=== PATIENT | female | born 1985 | race Caucasian/White ===

== ENCOUNTER 2018-05-05 15:36 | Observation (INO) | payer MEDICAID ==
[~2018-05-05] VITALS: Ht 160 cm; Wt 68.0 kg
--- NOTE | 2018-05-05 17:01 | PD ---
HPI Chief Complaint ctx Date Seen: May 05, 2018 Time Seen: 16:49 Travel History International Travel<30 Days: No Contact w/Intl Traveler<30Days: No Known Affected Area: No History of Present Illness HPI Pt is a 32y/o @ 30.6wks. She has PNC with Dr. Hui. She presents today for ctx. She states that she has been donna for 2wks but that today they became stronger and closer together. She reports that she is adequately hydrated. Denies LOF or VB. +FM. Weeks Gestation: 30 Para: 2 : 3 History Past Medical History Medical History: Denies Significant Hx Past Surgical History Narrative Surgical wisdom teeth extraction Family History Family History: Negative Social History Alcohol Use: No Tobacco Use: No Substance Abuse: No Allergies-Medications (Allergen,Severity, Reaction): Coded Allergies: No Known Allergies (Unverified , 05/05/18) Comments none Narrative Medication PNVs Review of Systems Except as stated in HPI: all other systems reviewed are Neg Physical Exam Narrative General: well developed, well nourished, no acute distress HEENT: normocephalic atraumatic, extraocular movements intact, neck supple Abdomen: soft, gravid, non-tender, nondistended Uterus: fundus soft, non-tender Extremities: full range of motion Skin: normal coloration, no rashes, no suspicious skin lesions noted Neurologic: cranial nerves 2-12 grossly intact, normal muscle tone, normal gait Psychiatric: normal mood and affect, appropriate FHTs: 140s, +accels, variable decels (mild), moderate variability, reactive [place]: irregular ctx Cvx: FFN collected first then /3, mid position Data Data Vital Signs Reviewed: Yes Orders Orders Fibronectin (05/05/18 16:24) Vital Signs (Adult) .ON ADMISSION (05/05/18 16:41) ^ Labor Status (05/05/18 16:41) Urinalysis - C+S If Indicated (05/05/18 16:41) ^ Non Stress Test (05/05/18 16:41) Labs Laboratory Tests Test 05/05/18 16:11 MDM Plan 32y/o @ 30.6wks with ctx. -- irregular on monitor -- FHTs cat 1 -- cvx /3 -- FFN negative Dispo: recheck 1hr later 2cm /3; pt with continued painful ctx; will admit to obs and give BMZ x2, indocin for tocolysis, magnesium for neuroprotection; Dr. Wilson (dog control officer) notified of pt status and plan of care. He will assume care of the pt. Courtesy orders placed. Diagnosis Diagnosis: Primary Impression: 30 weeks gestation of Additional Impression: Uterine contractions during Moy Guzmán MD May 05, 2018 17:01
[2018-05-05] MEDS ORDERED: MAGNESIUM SULFATE 40 GM PREMIX 1,000 ML ONE (17:44)
[2018-05-05] MEDS ORDERED: MAGNESIUM SULFATE 4 GM PREMIX 100 ML ONE (17:45)
[2018-05-05 17:57] LABS: BILIRUBIN, URINE NEG (NEG); BLOOD, URINE NEG (NEG); GLUCOSE,URINE NEG (NEG); KETONE, URINE NEG (NEG); NITRITE,URINE NEG (NEG); PH, URINE 6.5 (5.0-8.5); SQUAMOUS EPITHELIAL CELL URINE 2 /hpf (0-5); URINE COLOR COLORLESS (YELLW/STRAW); URINE LEUKOCYTE ESTERASE NEG (NEG)
[2018-05-05] MEDS ORDERED: MAGNESIUM SULFATE 40 GM PREMIX 1,000 ML IV SCH (18:02)
[2018-05-05] MEDS ORDERED: MAGNESIUM SULFATE 4 GM PREMIX 100 ML IV ONE (18:15)
[2018-05-05] MEDS ORDERED: ONDANSETRON ODT 4 MG TAB PO PRN (18:15)
[2018-05-05] MEDS ORDERED: SODIUM CHLORIDE 0.9% FLUSH 10 ML FLUSH IV FLUSH PRN (18:15)
[2018-05-05] MEDS ORDERED: INDOMETHACIN 50 MG CAP PO ONE (18:15)
[2018-05-05] MEDS ORDERED: CALCIUM GLUCONATE 10% 1 GM/10 ML VIAL IV PUSH PRN (18:15)
[2018-05-05 18:26] LABS: AUTOMATED NEUTROPHIL # 6.7 TH/MM3 (1.8-7.7); BASOPHIL % 0.5 % (0.0-2.0); EOSINOPHIL % 0.5 % (0.0-4.0); HEMATOCRIT 34.7 % (35.0-46.0); HEMOGLOBIN 11.8 GM/DL (11.6-15.3); LYMPHOCYTE # 1.8 TH/MM3 (1.0-4.8); MEAN CORPUSCULAR HEMOGLOBIN 31.1 PG (27.0-34.0); MEAN CORPUSCULAR HGB CONC 34.1 % (32.0-36.0); MONOCYTE # 0.7 TH/MM3 (0-0.9); PLATELET COUNT 211 TH/MM3 (150-450); RED BLOOD COUNT 3.81 MIL/MM3 (4.00-5.30); RED CELL DISTRIBUTION WIDTH 14.8 % (11.6-17.2); WHITE BLOOD COUNT 9.3 TH/MM3 (4.0-11.0)
[2018-05-05] MEDS: LACTATED RINGER'S 1000 ML INJ 1,000 ML IV SCH ×2 (18:30→22:12)
[2018-05-05] MEDS: BETAMETHASONE SOD PHOS/ACETATE SUSP 30 MG/5 ML VIAL IM SCH (18:30)
--- NOTE | 2018-05-05 19:48 | HHI.PR ---
DENTOFACIAL ORTHOPEDICS DENTIST Note Note S: Patient complaining of contractions, no vaginal bleeding, did report some leakage of fluid but unsure when or how much. Denies nausea or vomiting. O: Abdomen: Soft, gravid, nontender, no fundal tenderness. : Deferred, per nursing one 2 cm, thick, high. A/P: 32-year-old G3 repeat 2002 at 30 weeks and 6 days by her stated MELLO of 07/07/2018 seen as a triage by OB hospitalist and dispositioned for observation and tocolysis and betamethasone prior to my knowledge or assessment which I am in agreement with 1. IUP: Category 1 tracing -Cephalic by by bedside ultrasound, anterior placenta -GBS collected and pending 2. contractions / questionable labor: Patient's cervix changed from 1/T/H -> 2/T/H in 1-2 hours per nursing on arrival, FFN negative, however given Regular painful contractions will place in close observation. - Plan: Magnesium for neuro protection x 12hrs, Indocin for tocolysis x48hrs, betamethasone for lung maturity. Nursing to reassess patient in 4 hours and if contractions resolve and no more cervical change we will allow regular diet. Will observe until at least tomorrow afternoon after second betamethasone potentially for 48 hrs. If continues to make cervical change will have EFW done. 3. Leakage of fluid: Likely physiologic discharge as Amnisure negative and grossly normal-appearing fluid on bedside ultrasound. Kashif Wilson MD May 05, 2018 19:48
[2018-05-05] MEDS: SODIUM CHLORIDE 0.9% FLUSH 10 ML FLUSH IV FLUSH SCH (21:00)
[2018-05-05] MEDS ORDERED: ACETAMINOPHEN 325 MG TAB PO PRN (22:00)
[2018-05-05 23:30] VITALS: RESP 16
[2018-05-06] MEDS: INDOMETHACIN 25 MG CAP PO SCH ×2 (00:25→06:37)
--- NOTE | 2018-05-06 08:18 | PD.OB.ANTE ---
Subjective Interval History 32 yo at 31 weeks with increasing contractions for two weeks that warranted intervention last night. Cervix reported to change and magnesium, steroids and indocin initiated. Slept four hours with no UCs. No leaking, bleeding. GFM PNC uneventful til this. Objective Vital Signs Vital Signs Date Time Temp Pulse Resp B/P (MAP) Pulse Ox O2 Delivery O2 Flow Rate FiO2 05/05/18 23:30 16 Lab & Micro Results Test 05/05/18 16:11 05/05/18 16:40 05/05/18 17:50 Fibronectin NEGATIVE Urine Color COLORLESS Urine Turbidity CLEAR Urine pH 6.5 Urine Specific [place] 1.002 Urine Protein NEG mg/dL Urine Glucose (UA) NEG mg/dL Urine Ketones NEG mg/dL Urine Occult Blood NEG Urine Nitrite NEG Urine Bilirubin NEG Urine Urobilinogen LESS THAN 2.0 MG/DL Urine Leukocyte Esterase NEG Urine RBC LESS THAN 1 /hpf Urine WBC LESS THAN 1 /hpf Urine Squamous Epithelial Cells 2 /hpf Microscopic Urinalysis Comment CULT NOT INDICATED White Blood Count 9.3 TH/MM3 Red Blood Count 3.81 MIL/MM3 Hemoglobin 11.8 GM/DL Hematocrit 34.7 % Mean Corpuscular Volume 91.0 FL Mean Corpuscular Hemoglobin 31.1 PG Mean Corpuscular Hemoglobin Concent 34.1 % Red Cell Distribution Width 14.8 % Platelet Count 211 TH/MM3 Mean Platelet Volume 7.0 FL Neutrophils (%) (Auto) 72.0 % Lymphocytes (%) (Auto) 19.0 % Monocytes (%) (Auto) 8.0 % Eosinophils (%) (Auto) 0.5 % Basophils (%) (Auto) 0.5 % Neutrophils # (Auto) 6.7 TH/MM3 Lymphocytes # (Auto) 1.8 TH/MM3 Monocytes # (Auto) 0.7 TH/MM3 Eosinophils # (Auto) 0.0 TH/MM3 Basophils # (Auto) 0.0 TH/MM3 CBC Comment DIFF FINAL Differential Comment Date/Time Source Procedure Growth Status 05/05/18 18:32 Genital Vaginal Group B Streptococcus Screen Pending Received Physical Exam GENERAL: Well-nourished, well-developed patient. CARDIOVASCULAR: Regular rate and rhythm without murmurs, gallops, or rubs. RESPIRATORY: Breath sounds equal bilaterally. No accessory muscle use. ABDOMEN/GI: Abdomen soft, non-tender. 32 cm external os open 3 but internal os is finger tip with no application of vertex strip category one EXTREMITIES: No cyanosis or edema, non-tender, without signs of DVT. Assessment and Plan Assessment and Plan stable for discharge counseled on return and calls RTO Wednesday Alla Dawson MD May 06, 2018 08:18
[2018-05-06] MEDS ORDERED: DOCUSATE SODIUM 100 MG CAP PO SCH (09:00)
[2018-05-06] MEDS ORDERED: MULTIVIT/MIN/PREN/FOL AC/IRON PRENATAL TAB PO SCH (09:00)
[2018-05-06] MEDS: SODIUM CHLORIDE 0.9% FLUSH 10 ML FLUSH IV FLUSH SCH (15:04)
--- NOTE | 2018-05-06 17:12 | PD.OB.ANTE ---
Subjective Interval History day Objective Vital Signs Vital Signs Date Time Temp Pulse Resp B/P (MAP) Pulse Ox O2 Delivery O2 Flow Rate FiO2 05/05/18 23:30 16 Lab & Micro Results Test 05/05/18 17:50 White Blood Count 9.3 TH/MM3 Red Blood Count 3.81 MIL/MM3 Hemoglobin 11.8 GM/DL Hematocrit 34.7 % Mean Corpuscular Volume 91.0 FL Mean Corpuscular Hemoglobin 31.1 PG Mean Corpuscular Hemoglobin Concent 34.1 % Red Cell Distribution Width 14.8 % Platelet Count 211 TH/MM3 Mean Platelet Volume 7.0 FL Neutrophils (%) (Auto) 72.0 % Lymphocytes (%) (Auto) 19.0 % Monocytes (%) (Auto) 8.0 % Eosinophils (%) (Auto) 0.5 % Basophils (%) (Auto) 0.5 % Neutrophils # (Auto) 6.7 TH/MM3 Lymphocytes # (Auto) 1.8 TH/MM3 Monocytes # (Auto) 0.7 TH/MM3 Eosinophils # (Auto) 0.0 TH/MM3 Basophils # (Auto) 0.0 TH/MM3 CBC Comment DIFF FINAL Differential Comment Date/Time Source Procedure Growth Status 05/05/18 18:32 Genital Vaginal Group B Streptococcus Screen - Preliminary RESULTS PENDING Resulted Physical Exam GENERAL: Well-nourished, well-developed patient. CARDIOVASCULAR: Regular rate and rhythm without murmurs, gallops, or rubs. RESPIRATORY: Breath sounds equal bilaterally. No accessory muscle use. ABDOMEN/GI: Abdomen soft, non-tender. Fundus: [-] GENITOURINARY: External Genitalia: intact and normal in appearance Cervix: [-] Dilatation: [-] Effacement: [-] Station: [-] Presentation: [-] Membranes: [-] Uterine Contractions: [-] FHT's: Category: [-] Baseline: [-] Reactive: [-] Variability: [-] Decels: [-] EXTREMITIES: No cyanosis or edema, non-tender, without signs of DVT. Assessment and Plan Assessment and Plan stable for discharge counseled on return and calls RTO Wednesday Alla Dawson MD May 06, 2018 17:12
--- NOTE | 2018-05-06 17:14 | HHI.DCPOC ---
Discharge Care Plan Report Symptoms to Your Doctor -Temperature above 100.5 degrees -Redness, of incision or excessive or foul smelling drainage -Unusual pain or calf pain -Increased vaginal bleeding -Painful or difficulty urinating -Feelings of extreme sadness or anxiety after 2 weeks Goals to Promote Your Health * To prevent worsening of your condition and complications * To maintain your health at the optimal level Directions to Meet Your Goals Take your medications as prescribed Follow your dietary instruction Follow activity as directed Ensure plenty of rest for recovery Drink fluids for hydration Keep your appointments as scheduled Take your immunizations and boosters as scheduled If your symptoms worsen call your PCP, if no PCP go to Urgent Care Center or Emergency Room Smoking is Dangerous to Your Health. Avoid second hand smoke Call the 24-hour crisis hotline for domestic abuse at Alla Dawson MD May 06, 2018 17:14
[2018-05-06] MEDS ORDERED: NIFE1TAB85 PO (17:15)
[2018-05-06] MEDS: BETAMETHASONE SOD PHOS/ACETATE SUSP 30 MG/5 ML VIAL IM SCH (17:38)
== END 2018-05-06 18:39 | disposition home or self-care (01) ==
LOC: HOBED 15:36 → H2EA 17:45
PROVIDERS: ADMIT Obstetrics & Gynecology; ATTEND Obstetrics & Gynecology
DX: O60.03 Preterm labor without delivery, third trimester (principal); Z3A.31 31 weeks gestation of pregnancy
CPT/HCPCS: 81001; 82731; 85025; 86850; 86900; 86901; 87081; 96361; 96365; 96366; 99285; G0378; J0702; J3010; J3475; J7120

== ENCOUNTER 2018-07-01 12:11 | Inpatient (IN) ==
[2018-07-01] MEDS ORDERED: fentaNYL Citrate Inj 100 MCG/2 ML Ampul IV.PUSH PRN ×2 (13:23)
[2018-07-01] MEDS ORDERED: Oxytocin 30 Units/500ml Premix 30 UNITS/500 ML BAG IV.SIG ONE (13:23)
[2018-07-01] MEDS ORDERED: Naloxone Inj 0.4 MG/ML Vial IV.PUSH PRN ×2 (13:23→18:48)
[2018-07-01] MEDS ORDERED: Sodium Chlor 0.9% Inj 500 ML IV.SIG PRN (13:23)
[2018-07-01] MEDS ORDERED: Sod Chloride 0.9% Inj 1,000 ML IV.CONT PRN (13:23)
[2018-07-01] MEDS ORDERED: Citric Acid/Sodium Citrate Liq 30 ML UDC PO SCH (13:30)
[2018-07-01 14:30] LABS: Baso % (Auto) 0.3 % (0.0-2.0); Eos % (Auto) 0.4 % (0.0-4.0); Hematocrit 32.5 % (35.0-46.0); Hemoglobin 11.2 gm/dL (11.6-15.3); Lymph # (Auto) 1.5 th/mm3 (1.0-4.8); Lymph % (Auto) 15.9 % (9.0-44.0); Mean Corpuscular HGB Conc 34.4 % (32.0-36.0); Mean Corpuscular Hemoglobin 30.9 pg (27.0-34.0); Mean Corpuscular Volume 89.8 fL (80.0-100.0); Mean Platelet Volume 7.7 fL (7.0-11.0); Mono # (Auto) 0.6 th/mm3 (0.0-0.9); Mono % (Auto) 6.8 % (0.0-8.0); Neut # (Auto) 7.3 th/mm3 (1.8-7.7); Neut % (Auto) 76.6 % (16.0-70.0); Platelet Count 237 th/mm3 (150-450); Red Blood Count 3.61 mil/mm3 (4.00-5.30); Red Cell Distribution Width 15.4 % (11.6-17.2); White Blood Count 9.5 th/mm3 (4.0-11.0)
[2018-07-01 14:35] LABS: Amorphous Sediment,Urine Few /hpf; Bacteria,Urine Rare /hpf; Bilirubin,Urine Negative (Negative); Clarity,Urine Cloudy (Clear); Color,Urine Yellow (Yellw/Straw); Glucose,Urine (UA) Negative (Negative); Leukocyte Esterase,Urine Trace (Negative); Mucus,Urine Few /lpf (Occasional); Nitrite,Urine Negative (Negative); Specific Gravity,Urine 1.015 (1.002-1.035); Squamous Epithelial Cell,Urine 11 /hpf (0-5)
[2018-07-01 14:39] LABS: Amphetamine Urine With Conf Neg (Neg); Benzodiazepine Urine With Conf Neg (Neg)
[2018-07-01] MEDS ORDERED: Oxytocin 30 Units/500ml Premix 30 UNITS/500 ML BAG IV.SIG PRN (16:11)
--- NOTE | 2018-07-01 16:24 | P.HPOB ---
History of Present Illness Primary Care Physician: No Primary Care Physician Chief Complaint: 39 weeks at 4 cm with prodromal labor History of Present Illness: 32 yo mwf with LMP 10/01/17 and EDC 07/08/18 at 39 weeks who came in with known cervical dilation and prodromal UCs. PNC with HOGA beginning at 7 weeks No PTL, GDM, HTN GFM, no leaking, bleeding No MELENDEZ, N, V Blurred vision or RUQT Weeks Gestation:: 39 Para: 2 : 3 - Inpatient Certification I certify that the inpatient services were ordered in accordance with Medicare regulations governing the order. This includes certification that hospital inpatient services are reasonable and necessary and in the case of services not specified as inpatient-only under 42 CFR 419.22(n), that they are appropriately provided as inpatient services in accordance to with the 2-midnight benchmark under 43 CFR 412.3(e) Estimated Total Length of Stay (Days): 3 Plans for Post Hospital Care: Home Review of Systems All other systems reviewed negative except as stated in HPI PMFSH - Tobacco History Second Hand Smoke Exposure: No - Alcohol History How Often Do You Have a Drink Containing Alcohol: Never - Substance Use History Substance History: No History of Abuse - Travel History History of Recent Travel: No Recent Travel in the [place] Within the Last 8 Weeks: No Recent Travel Out of the Country Within the Last 8 Weeks: No Medications and Allergies Active Medications: Active Medications Citric Acid/Sodium Citrate (Sodium Citrate/Citric Acid Liq) 30 ml PO [employer]ER [facility] Stop: 07/05/18 13:29 Fentanyl Citrate (Fentanyl Inj) 50 mcg IV.PUSH Q1H PRN PRN Reason: Pain Scale 3 - 5 Fentanyl Citrate (Fentanyl Inj) 100 mcg IV.PUSH Q1H PRN PRN Reason: PAIN SCALE 6 TO 10 Lactated Ringer's (Lr 1000 Ml Inj) 1,000 mls @ 125 mls/hr IV.CONT .Q8H [facility] Lactated Ringer's (Lr 1000 Ml Inj) 1,000 mls @ 3,000 mls/hr IV.SIG UNSCH PRN PRN Reason: compromise or epidural Sodium Chloride (Ns Inj) 500 mls @ 1,000 mls/hr IV.SIG UNSCH PRN PRN Reason: SEE LABEL COMMENTS Sodium Chloride (Ns Inj) 1,000 mls @ 100 mls/hr IV.CONT .Q10H PRN PRN Reason: SEE LABEL COMMENTS Oxytocin (Pitocin 30 Units/Ns 500 Ml Premix) 30 units in 500 mls @ 2 mls/hr IV.SIG TITRATE PRN; Protocol PRN Reason: For induction of labor Lidocaine HCl (Xylocaine 1% Inj) 0.1 ml I-DERMAL PRN PRN PRN Reason: For IV start Stop: 07/04/18 13:22 Lidocaine HCl (Xylocaine 1% Inj) 10 ml INFILTRATN PRN PRN PRN Reason: For episiotomy repair Stop: 07/03/18 13:22 Mineral Oil (Muri-Lube Oil) 10 ml TOPICAL PRN PRN PRN Reason: PRN perineal massage Naloxone HCl (Narcan Inj) 0.1 mg IV.PUSH Q2M PRN PRN Reason: for opiate reversal Allergies Allergy/AdvReac Type Severity Reaction Status Date / Time No Known Allergies Allergy Verified 06/20/18 11:56 Home Medications Medication Instructions Recorded Confirmed Type PNV,calcium 72-iron,carb-folic 1 tab PO DAILY 06/20/18 07/01/18 History [ Plus] Exam Vital signs: Vital Signs 07/01/18 12:47 07/01/18 12:48 07/01/18 13:57 Temperature 98.1 F Pulse Rate 99 H 93 H Respiratory Rate 18 18 Blood Pressure 114/67 114/67 07/01/18 14:55 07/01/18 14:56 07/01/18 15:53 Temperature 98.5 F Pulse Rate 88 87 Respiratory Rate 18 18 Blood Pressure 112/59 L 119/70 Intake & Output 06/30/18 07/01/18 07/01/18 18:59 06:59 18:59 Weight 77 kg Other: Weight On Admission 77 kg - Constitutional no acute distress - Routine HEENT Exam Head: Present: normocephalic ENT: Present: mucous membranes moist - Routine Neck Exam Present: supple - Routine Respiratory Exam Present: CTA bilaterally - Routine Cardiovascular Exam Present: RRR - Routine Abdominal Exam Present: soft, normoactive bowel sounds - Additional findings Additional findings: 4-5 cm/80/-2 arom at 3pm scant fluid (baby well applied) EFW 7 1/2 pelvis proven ext NT Results - Labs CBC & Chem 7: 07/01/18 12:35 Labs: Laboratory Results - last 24 hr 07/01/18 07/01/18 07/01/18 12:20 12:20 12:20 WBC RBC Hgb Hct MCV MCH MCHC RDW Plt Count MPV Neut % (Auto) Lymph % (Auto) [place] % (Auto) Eos % (Auto) Baso % (Auto) Neut # (Auto) Lymph # (Auto) [place] # (Auto) Eos # (Auto) Baso # (Auto) WBC Differential Differential Comment Urine Color Yellow Urine Clarity Cloudy H Urine pH 6.0 Ur Specific [place] 1.015 Urine Protein Negative Urine Glucose (UA) Negative Urine Ketones Negative Urine Occult Blood Negative Urine Nitrate Negative Urine Bilirubin Negative Urine Urobilinogen Less than 2 Ur Leukocyte Esterase Trace H Urine RBC 1 Urine WBC 4 Ur Squamous Epith Cells 11 Amorphous Sediment Few H Urine Bacteria Rare H Urine Mucus Few H Micro UA Comment Culture not ind Urine Culture Comments Culture not ind Urine Opiates Screen Cancelled Neg Ur Barbiturates Screen Cancelled Neg Ur Amphetamine Screen Neg Ur Amphetamines Screen Cancelled U Benzodiazepines Scrn Cancelled Neg Urine Cocaine Screen Cancelled Neg U Cannabinoids Screen Cancelled Neg Blood Type 07/01/18 07/01/18 12:35 12:35 WBC 9.5 RBC 3.61 L Hgb 11.2 L Hct 32.5 L MCV 89.8 MCH 30.9 MCHC 34.4 RDW 15.4 Plt Count 237 MPV 7.7 Neut % (Auto) 76.6 H Lymph % (Auto) 15.9 [place] % (Auto) 6.8 Eos % (Auto) 0.4 Baso % (Auto) 0.3 Neut # (Auto) 7.3 Lymph # (Auto) 1.5 [place] # (Auto) 0.6 Eos # (Auto) 0.0 Baso # (Auto) 0.0 WBC Differential . Differential Comment Auto diff final Urine Color Urine Clarity Urine pH Ur Specific [place] Urine Protein Urine Glucose (UA) Urine Ketones Urine Occult Blood Urine Nitrate Urine Bilirubin Urine Urobilinogen Ur Leukocyte Esterase Urine RBC Urine WBC Ur Squamous Epith Cells Amorphous Sediment Urine Bacteria Urine Mucus Micro UA Comment Urine Culture Comments Urine Opiates Screen Ur Barbiturates Screen Ur Amphetamine Screen Ur Amphetamines Screen U Benzodiazepines Scrn Urine Cocaine Screen U Cannabinoids Screen Blood Type A Positive Caprini VTE Risk Assessment Caprini VTE Risk Assessment: No/Low Risk (score <= 1) Caprini Risk Assessment Model: Point Value = 1 Point Value = 2 Point Value = 3 Point Value = 5 Age 41-60 Minor surgery BMI > 25 kg/m2 Swollen legs Varicose veins or History of unexplained or recurrent spontaneous Oral contraceptives or hormone replacement Sepsis (< 1 month) Serious lung disease, including pneumonia (< 1 month) Abnormal pulmonary function Acute myocardial infarction Congestive heart failure (< 1 month) History of inflammatory bowel disease Medical patient at bed rest Age 61-74 Arthroscopic surgery Major open surgery (> 45 min) Laparoscopic surgery (> 45 min) Malignancy Confined to bed (> 72 hours) Immobilizing plaster cast Central venous access Age >= 75 History of VTE Family history of VTE Factor V Leiden Prothrombin [id number] Lupus anticoagulant Anticardiolipin antibodies Elevated serum homocysteine Heparin-induced thrombocytopenia Other congenital or acquired thrombophilia Stroke (< 1 month) Elective arthroplasty Hip, pelvis, or leg fracture Acute spinal cord injury (< 1 month) Prophylaxis Regimen: Total Risk Factor Score Risk Level Prophylaxis Regimen 0-1 Low Early ambulation 2 Moderate Order ONE of the following: *Sequential Compression Device (SCD) *Heparin 5000 units SQ BID 3-4 Higher Order ONE of the following medications: *Heparin 5000 units SQ TID *Enoxaparin/Lovenox 40 mg SQ daily (WT < 150 kg, CrCl > 30 mL/min) *Enoxaparin/Lovenox 30 mg SQ daily (WT < 150 kg, CrCl > 10-29 mL/min) *Enoxaparin/Lovenox 30 mg SQ BID (WT < 150 kg, CrCl > 30 mL/min) AND/OR *Sequential Compression Device (SCD) 5 or more Highest Order ONE of the following medications: *Heparin 5000 units SQ TID (Preferred with Epidurals) *Enoxaparin/Lovenox 40 mg SQ daily (WT < 150 kg, CrCl > 30 mL/min) *Enoxaparin/Lovenox 30 mg SQ daily (WT < 150 kg, CrCl > 10-29 mL/min) *Enoxaparin/Lovenox 30 mg SQ BID (WT < 150 kg, CrCl > 30 mL/min) AND *Sequential Compression Device (SCD) Assessment and Plan - Diagnosis (1) with 39 completed weeks gestation Code(s): Z3A.39 - 39 weeks gestation of Status: Acute - Plan Discharge Planning: augment if needed epidural as needed anticipate
[2018-07-01] MEDS ORDERED: fentaNYL 2MCG-Bupiv 0.125% Epi 150 ML EPIDURAL ONE (17:06)
[2018-07-01] MEDS ORDERED: Benzocaine 20% Top Spray 60 ML Can TOPICAL PRN (18:48)
[2018-07-01] MEDS ORDERED: Zolpidem Tartrate 5 MG Tablet PO PRN (18:48)
[2018-07-01] MEDS ORDERED: Witch Hazel 50%/Glyderin 12.5% 40 Pad Jar RECTAL PRN (18:48)
[2018-07-01] MEDS ORDERED: Bisacodyl 10 MG Supp RECTAL PRN (18:48)
[2018-07-01] MEDS ORDERED: Oxytocin 30 Units/500ml Premix 30 UNITS/500 ML BAG IV.CONT SCH (19:00)
[2018-07-01] MEDS ORDERED: fentaNYL 2MCG-Bupiv 0.125% Epi 150 ML EPIDURAL PRN (20:43)
[2018-07-01] MEDS ORDERED: fentaNYL Citrate Inj 100 MCG/2 ML Ampul EPIDURAL ONE (20:43)
[2018-07-01] MEDS: Ibuprofen 400 MG Tablet PO PRN (23:00)
[2018-07-01] MEDS: Senna/Docusate Sodium 8.6/50 MG Tablet PO SCH (23:00)
[2018-07-02] MEDS: Ibuprofen 400 MG Tablet PO PRN ×2 (07:26→15:35)
--- NOTE | 2018-07-02 10:27 | P.OBDELI ---
Weeks Gestation: 39 Patient Started Active Labor: Yes Medical Induction of Labor: Yes Artificial Rupture of Membrane: Yes Anesthesia: Epidural Episiotomy: none Vaginal Delivery: Normal Presentation: Occiput posterior Nuchal Cord: x1 Delayed Cord Clamping (45 sec): Yes Shoulder Dystocia: Suprapubic pressure given, Shaneka maneuver done, Wood's screw maneuver done Placenta: Spontaneous delivery Laceration: 2 deg Repair: Chromic interrupted Estimated blood loss (mL): 300 Infant: Male (male from ROP with terminal meconum after moderate shoulder dystocia. 7 pounds 14 ounces 8 and 9 apgars Clavicle and humerus fine repair with chromic)
--- NOTE | 2018-07-02 10:28 | P.PNOB ---
Subjective Post day: 1 Interval history: quiet night nursing well will be circumcised through the anabaptist Objective Vital Signs/I&O: Vital Signs 07/01/18 12:47 07/01/18 12:48 07/01/18 13:57 Temperature 98.1 F Pulse Rate 99 H 93 H Respiratory Rate 18 18 Blood Pressure 114/67 114/67 07/01/18 14:55 07/01/18 14:56 07/01/18 15:53 Temperature 98.5 F Pulse Rate 88 87 Respiratory Rate 18 18 Blood Pressure 112/59 L 119/70 07/01/18 16:29 07/01/18 16:59 07/01/18 17:00 Temperature Pulse Rate 81 86 Respiratory Rate 18 18 Blood Pressure 119/98 H 115/61 07/01/18 17:12 07/01/18 17:22 07/01/18 17:26 Temperature Pulse Rate 90 85 90 Respiratory Rate Blood Pressure 126/68 119/65 107/49 L 07/01/18 17:30 07/01/18 17:40 07/01/18 17:43 Temperature 98.0 F Pulse Rate 90 88 Respiratory Rate 18 Blood Pressure 128/58 L 112/75 07/01/18 17:50 07/01/18 18:15 07/01/18 19:05 Temperature Pulse Rate 95 H 100 H 96 H Respiratory Rate Blood Pressure 136/109 H 07/01/18 19:15 07/01/18 19:17 07/01/18 19:18 Temperature 98.4 F Pulse Rate 92 H Respiratory Rate 18 Blood Pressure 127/69 07/01/18 19:31 07/01/18 19:40 07/01/18 20:01 Temperature 98.2 F Pulse Rate 87 91 H 103 H Respiratory Rate 15 Blood Pressure 105/76 123/79 117/76 07/01/18 21:50 07/01/18 22:10 07/02/18 08:00 Temperature 98.0 F 97.5 F L Pulse Rate 79 80 84 Respiratory Rate 18 20 Blood Pressure 122/55 L 118/69 111/63 Intake & Output 07/01/18 07/02/18 07/02/18 18:59 06:59 18:59 Weight 77 kg Other: Weight On Admission 77 kg Result Diagrams: 07/01/18 12:35 Objective Remarks: GENERAL: Well-nourished, well-developed patient. CARDIOVASCULAR: Regular rate and rhythm without murmurs, gallops, or rubs. RESPIRATORY: Breath sounds equal bilaterally. No accessory muscle use. ABDOMEN/GI: Abdomen soft, non-tender. Fundus: Firm, non-tender at umbilicus. GENITOURINARY: Light to moderate bleeding. EXTREMITIES: No cyanosis or edema, non-tender, without signs of DVT. Medications and IVs: Active Medications Acetaminophen (Tylenol) 650 mg PO Q4H PRN PRN Reason: PAIN SCALE 1 TO 2 Al Hydroxide/Mg Hydroxide (Milk Of Magnesia Liq) 30 ml PO Q12H PRN PRN Reason: Mild Constipation Benzocaine (Americaine 20% Top [place]) 1 spray TOPICAL Q4H PRN PRN Reason: For Perineum Discomfort Last Admin: 07/01/18 23:02 Dose: 1 spray Bisacodyl (Dulcolax Supp) 10 mg RECTAL DAILY PRN PRN Reason: SEVERE CONSITIPATION Citric Acid/Sodium Citrate (Sodium Citrate/Citric Acid Liq) 30 ml PO LEAD COATER [facility] Stop: 07/05/18 13:29 Diphtheria/Pertussis/Tetanus Vacc (Boostrix Vaccine Inj) 0.5 ml IM .ONCE ONE Stop: 07/02/18 16:01 Ephedrine Sulfate (Ephedrine/Ns Syringe) 10 mg IV.PUSH UNSCH PRN PRN Reason: SEE LABEL COMMENTS Stop: 07/02/18 20:43 Fentanyl Citrate (Fentanyl Inj) 50 mcg IV.PUSH Q1H PRN PRN Reason: Pain Scale 3 - 5 Fentanyl Citrate (Fentanyl Inj) 100 mcg IV.PUSH Q1H PRN PRN Reason: PAIN SCALE 6 TO 10 Lactated Ringer's (Lr 1000 Ml Inj) 1,000 mls @ 125 mls/hr IV.CONT .Q8H [facility] Last Admin: 07/01/18 16:28 Dose: 125 mls/hr Lactated Ringer's (Lr 1000 Ml Inj) 1,000 mls @ 3,000 mls/hr IV.SIG UNSCH PRN PRN Reason: compromise or epidural Sodium Chloride (Ns Inj) 500 mls @ 1,000 mls/hr IV.SIG UNSCH PRN PRN Reason: SEE LABEL COMMENTS Sodium Chloride (Ns Inj) 1,000 mls @ 100 mls/hr IV.CONT .Q10H PRN PRN Reason: SEE LABEL COMMENTS Oxytocin (Pitocin 30 Units/Ns 500 Ml Premix) 30 units in 500 mls @ 2 mls/hr IV.SIG TITRATE PRN; Protocol PRN Reason: For induction of labor Last Admin: 07/01/18 16:28 Dose: 2 milliunit/min, 2 mls/hr Fentanyl/Bupivacaine/Sodium Chlor (Fentanyl 2 Mcg-Bupiv 0.125% Epi) 150 mls @ 10 mls/hr EPIDURAL PRN PRN PRN Reason: for Labor Pain Ibuprofen (Motrin) 800 mg PO Q8H PRN PRN Reason: For cramping Last Admin: 07/02/18 07:26 Dose: 800 mg Lactulose (Lactulose Liq) 30 ml PO DAILY PRN PRN Reason: SEVERE CONSITIPATION Lidocaine HCl (Xylocaine 1% Inj) 0.1 ml I-DERMAL PRN PRN PRN Reason: For IV start Stop: 07/04/18 13:22 Lidocaine HCl (Xylocaine 1% Inj) 10 ml INFILTRATN PRN PRN PRN Reason: For episiotomy repair Stop: 07/03/18 13:22 Measles/Mumps/Rubella Vaccine Live (M-M-R Ii Vaccine Inj) 0.5 ml SQ .ONCE ONE Stop: 07/02/18 16:01 Mineral Oil (Muri-Lube Oil) 10 ml TOPICAL PRN PRN PRN Reason: PRN perineal massage Miscellaneous Information (Misc Information) 1 each OTHER UNSCH PRN PRN Reason: SEE LABEL COMMENTS Stop: 07/02/18 20:43 Miscellaneous Information (Misc Information) 1 each OTHER UNSCH PRN PRN Reason: SEE LABEL COMMENTS Stop: 07/02/18 20:43 Naloxone HCl (Narcan Inj) 0.1 mg IV.PUSH Q2M PRN PRN Reason: for opiate reversal Naloxone HCl (Narcan Inj) 0.1 mg IV.PUSH Q2M PRN PRN Reason: for opiate reversal Ondansetron HCl (Zofran Odt) 4 mg PO Q6H PRN PRN Reason: NAUSEA OR VOMITING Senna/Docusate Sodium (Darling-Colace) 1 tab PO BID GUERLINE Last Admin: 07/01/18 23:00 Dose: 1 tab Sennosides (Senokot) 17.2 mg PO Q12H PRN PRN Reason: Moderate Constipation Sodium Chloride (Ns Flush) 2 ml IV.FLUSH BID GUERLINE Last Admin: 07/01/18 22:25 Dose: Not Given Sodium Chloride (Ns Flush) 2 ml IV.FLUSH PRN PRN PRN Reason: FLUSH AFTER USING IV ACCESS Witch Kimmy/Glycerin (Tucks Pads) 1 applicatio RECTAL QID PRN PRN Reason: HEMORRHOIDS Last Admin: 07/01/18 23:01 Dose: 1 applicatio Zolpidem Tartrate (Ambien) 5 mg PO HS PRN PRN Reason: SLEEP Assessment and Plan - Diagnosis (1) with 39 completed weeks gestation Code(s): Z3A.39 - 39 weeks gestation of Status: Acute (2) care following vaginal delivery Code(s): Z39.2 - Encounter for routine follow-up Status: Acute - Plan Discharge Planning: augment if needed epidural as needed anticipate 07/02/18 doing well anticipate noraml post course and discharge in the morning 07/03
[2018-07-02] MEDS: Senna/Docusate Sodium 8.6/50 MG Tablet PO SCH (14:16)
[2018-07-02] MEDS ORDERED: Diphtheria/Tetanus/Pertussis Vaccine Inj 0.5 ML Syringe IM ONE (16:00)
[2018-07-02] MEDS ORDERED: Measles/Mumps/Rubella Vaccine Inj 0.5 ML Vial SQ ONE (16:00)
[2018-07-02] MEDS: Acetaminophen 325 MG Tablet PO PRN (22:09)
[2018-07-03] MEDS: Acetaminophen 325 MG Tablet PO PRN ×2 (07:41→12:20)
--- NOTE | 2018-07-03 09:45 | P.PNOB ---
Subjective Post day: 2 Interval history: mom feeling well with minimal pain nursing baby jaundice and will likely stay Objective Vital Signs/I&O: Vital Signs 07/02/18 20:00 Temperature 97.8 F Pulse Rate 75 Respiratory Rate 18 Blood Pressure 123/71 Result Diagrams: 07/01/18 12:35 Objective Remarks: GENERAL: Well-nourished, well-developed patient. CARDIOVASCULAR: Regular rate and rhythm without murmurs, gallops, or rubs. RESPIRATORY: Breath sounds equal bilaterally. No accessory muscle use. ABDOMEN/GI: Abdomen soft, non-tender. Fundus: Firm, non-tender at umbilicus. GENITOURINARY: Light to moderate bleeding. EXTREMITIES: No cyanosis or edema, non-tender, without signs of DVT. Medications and IVs: Active Medications Acetaminophen (Tylenol) 650 mg PO Q4H PRN PRN Reason: PAIN SCALE 1 TO 2 Last Admin: 07/03/18 07:41 Dose: 650 mg Al Hydroxide/Mg Hydroxide (Milk Of Magnesia Liq) 30 ml PO Q12H PRN PRN Reason: Mild Constipation Benzocaine (Americaine 20% Top Fine) 1 spray TOPICAL Q4H PRN PRN Reason: For Perineum Discomfort Last Admin: 07/01/18 23:02 Dose: 1 spray Bisacodyl (Dulcolax Supp) 10 mg RECTAL DAILY PRN PRN Reason: SEVERE CONSITIPATION Citric Acid/Sodium Citrate (Sodium Citrate/Citric Acid Liq) 30 ml PO RUG [facility] Stop: 07/05/18 13:29 Fentanyl Citrate (Fentanyl Inj) 50 mcg IV.PUSH Q1H PRN PRN Reason: Pain Scale 3 - 5 Fentanyl Citrate (Fentanyl Inj) 100 mcg IV.PUSH Q1H PRN PRN Reason: PAIN SCALE 6 TO 10 Lactated Ringer's (Lr 1000 Ml Inj) 1,000 mls @ 125 mls/hr IV.CONT .Q8H [facility] Last Admin: 07/01/18 16:28 Dose: 125 mls/hr Lactated Ringer's (Lr 1000 Ml Inj) 1,000 mls @ 3,000 mls/hr IV.SIG UNSCH PRN PRN Reason: compromise or epidural Sodium Chloride (Ns Inj) 500 mls @ 1,000 mls/hr IV.SIG UNSCH PRN PRN Reason: SEE LABEL COMMENTS Sodium Chloride (Ns Inj) 1,000 mls @ 100 mls/hr IV.CONT .Q10H PRN PRN Reason: SEE LABEL COMMENTS Oxytocin (Pitocin 30 Units/Ns 500 Ml Premix) 30 units in 500 mls @ 2 mls/hr IV.SIG TITRATE PRN; Protocol PRN Reason: For induction of labor Last Admin: 07/01/18 16:28 Dose: 2 milliunit/min, 2 mls/hr Fentanyl/Bupivacaine/Sodium Chlor (Fentanyl 2 Mcg-Bupiv 0.125% Epi) 150 mls @ 10 mls/hr EPIDURAL PRN PRN PRN Reason: for Labor Pain Ibuprofen (Motrin) 800 mg PO Q8H PRN PRN Reason: For cramping Last Admin: 07/02/18 15:35 Dose: 800 mg Lactulose (Lactulose Liq) 30 ml PO DAILY PRN PRN Reason: SEVERE CONSITIPATION Lidocaine HCl (Xylocaine 1% Inj) 0.1 ml I-DERMAL PRN PRN PRN Reason: For IV start Stop: 07/04/18 13:22 Lidocaine HCl (Xylocaine 1% Inj) 10 ml INFILTRATN PRN PRN PRN Reason: For episiotomy repair Stop: 07/03/18 13:22 Mineral Oil (Muri-Lube Oil) 10 ml TOPICAL PRN PRN PRN Reason: PRN perineal massage Naloxone HCl (Narcan Inj) 0.1 mg IV.PUSH Q2M PRN PRN Reason: for opiate reversal Naloxone HCl (Narcan Inj) 0.1 mg IV.PUSH Q2M PRN PRN Reason: for opiate reversal Ondansetron HCl (Zofran Odt) 4 mg PO Q6H PRN PRN Reason: NAUSEA OR VOMITING Senna/Docusate Sodium (Darling-Colace) 1 tab PO BID [facility] Last Admin: 07/02/18 14:16 Dose: 1 tab Sennosides (Senokot) 17.2 mg PO Q12H PRN PRN Reason: Moderate Constipation Sodium Chloride (Ns Flush) 2 ml IV.FLUSH BID [facility] Last Admin: 07/01/18 22:25 Dose: Not Given Sodium Chloride (Ns Flush) 2 ml IV.FLUSH PRN PRN PRN Reason: FLUSH AFTER USING IV ACCESS Witch Kimmy/Glycerin (Tucks Pads) 1 applicatio RECTAL QID PRN PRN Reason: HEMORRHOIDS Last Admin: 07/01/18 23:01 Dose: 1 applicatio Zolpidem Tartrate (Ambien) 5 mg PO HS PRN PRN Reason: SLEEP Assessment and Plan - Diagnosis (1) with 39 completed weeks gestation Code(s): Z3A.39 - 39 weeks gestation of Status: Acute Plan: discharge home today, will stay in Peds with child circumcision will be at home RTO 6 weeks counseled on PPD, HTN, DVT (2) care following vaginal delivery Code(s): Z39.2 - Encounter for routine follow-up Status: Acute - Plan Discharge Planning: augment if needed epidural as needed anticipate 07/02/18 doing well anticipate noraml post course and discharge in the morning 07/03
[2018-07-03] MEDS: Senna/Docusate Sodium 8.6/50 MG Tablet PO SCH (12:20)
== END 2018-07-03 12:35 | disposition home or self-care (01) ==
LOC: H2E 12:11 → H1EA 22:13
PROVIDERS: ADMIT Obstetrics & Gynecology; ATTEND Obstetrics & Gynecology